=== PATIENT | female | born 1970 | race American Indian/Alaskan Native ===

== ENCOUNTER 2019-10-13 16:22 | Emergency (ER) | payer SELFPAY ==
[2019-10-13 16:59] VITALS: BP 154/97
[2019-10-13] MEDS ORDERED: ONDANSETRON 4 MG/2 ML INJ IV ONE (18:15)
[2019-10-13] MEDS ORDERED: MORPHINE 2 MG/1 ML INJ IV ONE (18:15)
[2019-10-13 18:51] LABS: Basophils % (Auto) 0.3 % (0.0-1.8); Hematocrit 39.8 % (30.3-42.9); Lymphocytes # (Auto) 0.8 K/mm3 (1.2-5.4); Lymphocytes % (Auto) 7.8 % (13.4-35.0); Mean Corpuscular HGB Conc 33 % (30-34); Mean Corpuscular Volume 80 fl (79-97); Monocytes # (Auto) 0.3 K/mm3 (0.0-0.8); Platelet Count 409 K/mm3 (140-440); Red Blood Count 4.96 M/mm3 (3.65-5.03); Red Cell Distribution Width 18.1 % (13.2-15.2)
--- NOTE | 2019-10-13 18:59 | Emergency Department Report ---
ED Abdominal Pain HPI - General Chief Complaint: Dyspnea/Respdistress Stated Complaint: SOB Time Seen by Provider: 10/13/19 17:55 Source: patient Mode of arrival: Wheelchair Limitations: No Limitations - History of Present Illness Initial Comments: 48-year-old female presents to ED with abdominal pain, nausea vomiting, chest pain, shortness of breath. Patient states she has been having these episodes of abdominal pain and vomiting, which then caused her to have chest pain and shortness of breath. Patient states this has been happening intermittently since last year. Patient states that most recently occurred 2 weeks ago, in [place] where she lives. Patient states she has had x-rays and CT scans of her chest that have been negative. States her symptoms are related to her GI symptoms. Patient currently has prescriptions for metronidazole, doxycycline, Pepto-Bismol, omeprazole for "a stomach virus." Patient denies any other medical history. She denies any fever. Reports some mild diarrhea. MD Complaint: abdominal pain -: Last night Location: diffuse Radiation: chest Migration to: no migration Severity: moderate Severity scale (0 -10): 10 Quality: cramping, sharp Consistency: constant Improves With: nothing Worsens With: nothing Associated Symptoms: nausea, vomiting, diarrhea - Related Data Previous Rx's Medication Instructions Recorded Last Taken Type Ondansetron [Zofran Odt] 4 mg PO Q8HR PRN #20 tab.rapdis 10/13/19 Unknown Rx Allergies Allergy/AdvReac Type Severity Reaction Status Date / Time No Known Allergies Allergy Verified 10/13/19 18:24 ED Review of Systems ROS: Stated complaint: SOB Other details as noted in HPI Comment: All other systems reviewed and negative Constitutional: denies: chills, fever Respiratory: shortness of breath Cardiovascular: chest pain Gastrointestinal: abdominal pain, nausea, vomiting, diarrhea ED Past Medical Hx - Past Medical History Previous Medical History?: Yes Hx GERD: Yes - Medications Home Medications: Home Medications Medication Instructions Recorded Confirmed Last Taken Type Ondansetron [Zofran Odt] 4 mg PO Q8HR PRN #20 tab.rapdis 10/13/19 Unknown Rx ED Physical Exam - General Limitations: No Limitations General appearance: alert, in no apparent distress - Head Head exam: Present: atraumatic, normocephalic - Eye Eye exam: Present: normal appearance, EOMI - ENT ENT exam: Present: mucous membranes moist - Neck Neck exam: Present: normal inspection - Respiratory Respiratory exam: Present: normal lung sounds bilaterally. Absent: respiratory distress - Cardiovascular Cardiovascular Exam: Present: regular rate, normal rhythm - GI/Abdominal GI/Abdominal exam: Present: soft, tenderness (mild, diffuse). Absent: distended - Extremities Exam Extremities exam: Present: normal inspection - Neurological Exam Neurological exam: Present: alert, oriented X3 - Psychiatric Psychiatric exam: Present: normal affect, normal mood - Skin Skin exam: Present: warm, dry, intact, normal color ED Course Vital Signs 10/13/19 16:58 Temperature 97.9 F Pulse Rate 100 H Respiratory 20 Rate Blood Pressure 154/97 O2 Sat by Pulse 99 Oximetry ED Medical Decision Making - Lab Data Result diagrams: 10/13/19 18:28 10/13/19 18:28 - Radiology Data Radiology results: report reviewed, image reviewed - Medical Decision Making 48-year-old female with acute exacerbation of her chronic abdominal pain. Patient reports she usually experiences burning chest pain and shortness of breath during these episodes. Patient is currently on antibiotics, omeprazole, and Pepto-Bismol. Patient is in no respiratory distress, lungs are clear, O2 sats are normal. Labs are unremarkable. Acute abdominal series is also normal. Patient was given one dose of morphine and Zofran, she is feeling much better at this time. Tolerating p.o. Will discharge at this time. - Differential Diagnosis Gastritis, pancreatitis, pneumonia, ruptured viscus Critical care attestation.: If time is entered above; I have spent that time in minutes in the direct care of this critically ill patient, excluding procedure time. ED Disposition Clinical Impression: Vomiting, Dyspnea, Abdominal pain Disposition: - TO HOME OR SELFCARE Is pt being admited?: No Condition: Stable Instructions: Abdominal Pain (ED) Prescriptions: Ondansetron [Zofran Odt] 4 mg PO Q8HR PRN #20 tab.rapdis PRN Reason: Vomiting Referrals: PRIMARY CARE, [Primary Care Provider] - 3-5 Days Time of Disposition: 20:02
--- NOTE | 2019-10-13 19:02 | XRay Report ---
XR abd series w cxr 1V INDICATION / CLINICAL INFORMATION: chest pain, vomiting. COMPARISON: None available. FINDINGS: Chest: Lungs are clear. No effusion. No pneumothorax. TUBES / LINES: None. BOWEL GAS PATTERN: Nonobstructive bowel gas pattern. FREE AIR / EXTRALUMINAL GAS: None seen. ADDITIONAL FINDINGS: Calcification left aspect of the pelvis measuring approximately 2 cm. Small nons pecific calcifications in the right mid abdomen which appear to be inferior to the right kidney.. IMPRESSION: 1. No acute abnormality of the chest. Nonobstructive bowel gas pattern. 2. Calcification in the left aspect of pelvis likely represents a fibroid. Signer Name: Gilson Suárez MD Signed: 10/13/2019 6:58 PM Workstation Name: [id number]
[2019-10-13 19:24] LABS: Alanine Aminotransferase 10 units/L (7-56); Albumin 4.9 g/dL (3.9-5); Blood Urea Nitrogen 8 mg/dL (7-17); Calcium 9.8 mg/dL (8.4-10.2); Hemolysis Index 29
[2019-10-13 19:26] LABS: BUN/Creatinine Ratio 16; Bilirubin,Direct < 0.2 mg/dL (0-0.2)
== END 2019-10-13 20:10 | disposition home or self-care (01) ==
LOC: ED 16:22
DX: R11.10 Vomiting, unspecified (principal); R10.9 Unspecified abdominal pain; R06.00 Dyspnea, unspecified; K21.9 Gastro-esophageal reflux disease without esophagitis; Z79.899 Other long term (current) drug therapy
CPT/HCPCS: 36415; 74022; 80048; 80076; 83690; 85025; 96374; 96375; 99284; J2270; J2405